=== PATIENT | female | born 1975 | race Caucasian/White ===

== ENCOUNTER 2017-06-06 20:55 | Observation (INO) | payer MEDICAID ==
[~2017-06-06] VITALS: Ht 180.3 cm; Wt 83.6 kg
[~2017-06-06 20:55] MED LIST: AUGMENTIN1 TA2 PO; BACTROBAN2% TP; CIPRO 500MG TA500 MG PO; DILAUDID2 MG PO; FLEXERIL10 M1 PO; FLEXERIL10 MG PO; IBU-8800 MG PO; KEFLEX 500MG.500 MG PO; LORTAB 5/500 501 TAB PO; LORTAB 500 MG-71 TAB PO; MEDROL 4MG. DOSE4 MG PO; METOPROLOL SUC100 M1 PO; NEURONTIN 300M300 MG PO; NEURONTIN100 MG PO; NORCO 325 MG-51 TAB PO; PERCOCET 5/3251 EACH PO; PREDNISONE 20MG20 MG PO; PREVACID30 MG PO; SEPTRA DS 800 M1 TAB PO; SEROQUEL 25MG T25 MG PO; TYLENOL W/CODEI1 TA2 PO; WELLBUTRIN 150150 MG PO; XANAX1 MG PO; ZOLOFT100 MG PO
[2017-06-06 20:56] VITALS: BP 127/86
[2017-06-06] MEDS ORDERED: ESCITALOPRAM20 MG PO (21:02)
[2017-06-06] MEDS ORDERED: LISINOPRIL20 MG PO (21:02)
[2017-06-06 21:17] LABS: LYMPH # 2.8 K/mm3 (0.7-4.5); LYMPH % 35.4 % (10-50.0)
[2017-06-06 21:18] LABS: HEMOGLOBIN 15.4 g/dL (12.2-16.2)
--- OUTSIDE RECORDS SUMMARY | 2017-06-06 21:22 | External Medical Summary Rpt | CCD ---
Author Author , PRIMITIVO LANGFORD Address Unknown Phone Care Team Providers Care Punch Molder Name Role Phone Aparna Palacios MD, Unavailable Unavailable Aparna ZAMAN MD, Unavailable Unavailable SENG ZAMAN MD Purpose Continuity of Care Document - 11-13-2012 through 2016 Problems Code Diagnosis DOS Provider Status 825.25 825.25 FX 09-02-2013 [place] METATARSAL- [facility] E849.0 E849.0 09-02-2013 [place] ACCIDENT IN [facility] E880.9 E880.9 FALL 09-02-2013 [place] ON [facility] STAIR/STEP [facility] NEC 216.6 216.6 03-10-2013 [place] BENIGN GILDA [facility] SKIN ARM [facility] 305.1 305.1 03-10-2013 [place] TOBACCO USE [facility] DISORDER [facility] 401.9 401.9 03-10-2013 [place] HYPERTENSIO [facility] 599.0 599.0 URIN 11-13-2012 [place] TRACT [facility] INFECTION Hospital NOS 788.0 788.0 RENAL 11-13-2012 [place] COLIC [facility] D25.9 Leiomyoma of uterus, unspecified F32.9 Major depressive disorder, single episode, unspecified F41.1 Generalized anxiety disorder I10 Essential (primary) hypertensio n M54.5 Low back pain N83.202 Unspecified ovarian cyst, left side N93.8 Other specified abnormal uterine and vaginal bleeding R11.2 Nausea with vomiting, unspecified T15.91XA Foreign body on external eye, part unspecified , right eye, initial encounter Z01.419 Encounter for gynecologic al examination (general) (routine) without abnormal findings Z87.09 Personal history of other diseases of the respiratory system Allergies, Adverse Reactions, Alerts Type Allergy to substance Adverse Reaction to Substance Substance Reaction Severity INGREDIENT: NO KNOWN Unknown Unknown - NO KNOWN DRUG ALLERGY Medications Na ND Rx Da Fi Fi Am Da Di Ph RX Ph St me C No te ll ll ou ys ag ar # ys at rm s nt no ma ic us Or Da si cy ia de te s n re d BU 55 02 0 No TO 39 -0 RP 00 8- Lo ANDINO 18 20 ng NO 30 14 er L 1 1 Ac MG ti /M ve L AL AZ 00 02 0 No OM 64 -0 ET 11 8- Lo ANDINO 49 20 ng ZI 53 14 er NE 5 Ac 25 ti ve MG /M L AM PU L AP 00 07 0 No AP 40 -2 -H 60 8- Lo YD 36 20 ng RO 66 13 er CO 2 DO Ac NE ti ve 32 5M G- 7. 5M G Sa 63 04 0 No li 80 -2 ne 70 1- Lo 10 20 ng Fl 07 13 er us 5 h Ac 10 ti ML ve Sy ri ng e KE 00 04 0 No TO 40 -2 RO 93 1- Lo LA 79 20 ng C 50 13 er 30 1 Ac MG ti /M ve L AL ON 00 04 0 No DA 64 -2 NS 16 1- Lo ET 08 20 ng RO 02 13 er N 5 HC Ac L ti 4 ve MG /2 ML AL Le 51 04 0 No vo 07 -2 fl 90 1- Lo ox 03 20 ng ac 52 13 er in 0 Ac 50 ti 0M ve G Ta bl et AC 51 04 0 No ET 07 -2 AM 90 1- Lo IN 16 20 ng OP 19 13 er HE 9H N Ac W/ ti CO ve DE IN E #3 TA K CE 00 04 0 No FT 40 -2 RI 97 1- Lo AX 33 20 ng ON 30 13 er E 4 1 Ac GM ti ve AL So 00 04 0 No d 07 -2 Ch 47 1- Lo lo 10 20 ng ri 11 13 er de 3 Ac 0. ti 9% ve 50 ML Ad v Vital Signs 09-02-2013 15:33 Name Value Interpretat Reference Comment ion Range BP 82 mm[Hg] Diastolic BP Systolic 142 mm[Hg] Heart 58 /min Rate/Pulse O2% 98 % Respiratory 20 /min Rate 09-02-2013 15:22 Name Value Interpretat Reference Comment ion Range BP 82 mm[Hg] Diastolic BP Systolic 145 mm[Hg] Heart 59 /min Rate/Pulse O2% 100 % Respiratory 20 /min Rate 03-10-2013 12:43 Name Value Interpretat Reference Comment ion Range BP 86 mm[Hg] Diastolic BP Systolic 130 mm[Hg] Heart 58 /min Rate/Pulse O2% 98 % Respiratory 20 /min Rate 02-19-2013 15:14 Name Value Interpretat Reference Comment ion Range Body 98.0 [degF] Temperature BP 81 mm[Hg] Diastolic BP Systolic 144 mm[Hg] Heart 71 /min Rate/Pulse O2% 99 % Respiratory 20 /min Rate 02-19-2013 15:13 Name Value Interpretat Reference Comment ion Range BP 81 mm[Hg] Diastolic BP Systolic 144 mm[Hg] Heart 58 /min Rate/Pulse O2% 100 % Respiratory 20 /min Rate 11-13-2012 22:00 Name Value Interpretat Reference Comment ion Range BP 60 mm[Hg] Diastolic BP Systolic 122 mm[Hg] Heart 61 /min Rate/Pulse O2% 99 % Respiratory 20 /min Rate 11-13-2012 20:45 Name Value Interpretat Reference Comment ion Range Body 98.0 [degF] Temperature BP 67 mm[Hg] Diastolic BP Systolic 126 mm[Hg] Heart 61 /min Rate/Pulse O2% 99 % Respiratory 20 /min Rate Results Labs Lab Lab Date Result Refere Interp Status Commen Order Detail nces retati t Range on CBC w auto diff (06-06-2017 21:04) Automat = 0.0 0-0.2 complet ed 017 K/MM3 ed blood 21:04 basophi l count (count/ vo Baso % = 0.4 % 0.1-2.0 complet 017 ed 21:04 Automat = 0.2 0.0-0.4 complet ed 017 K/mm3 ed blood 21:04 eosinop hil count Automat = 2.8 % 0.1-12. complet ed 017 0 ed blood 21:04 eosinop hils/10 0 leukocy t Blood = 4.5 1.8-7.8 complet granulo 017 K/mm3 ed cytes 21:04 automat ed count (numb Granulo = 57.7 37.0-80 complet cyte 017 % .0 ed percent 21:04 age Blood = 47.1 37.0-47 complet hematoc 017 % .0 ed rit 21:04 (volume fractio n) Blood = 15.4 12.2-16 complet hemoglo 017 g/dL .2 ed bin 21:04 measure ment (mass/v olum Absolut = 2.8 0.7-4.5 complet e 017 K/mm3 ed lymphoc 21:04 yte count Lymphoc = 35.4 10-50.0 complet yte 017 % ed count, 21:04 blood, automat ed Mean = 28.6 27-31.2 complet corpusc 017 pg ed ular 21:04 hemoglo bin (MCH) determ Automat = 32.8 31.8-35 complet ed 017 g/dl .4 ed erythro 21:04 cyte mean corpusc ular h Automat = 87.2 82.2-97 complet ed 017 fl .8 ed erythro 21:04 cyte mean corpusc ular v Absolut = 0.3 0.1-1.0 complet e 017 K/mm3 ed monocyt 21:04 e count Todd % = 3.8 % 1.7-9.3 complet 017 ed 21:04 Automat = 8.8 7.4-10. complet ed 017 fl 4 ed blood 21:04 platele t mean volume ivan Blood = 264 142-424 complet platele 017 K/mm3 ed t count 21:04 Red = 5.40 4.2-5.4 complet blood 017 M/mm3 ed cell 21:04 count Automat = 13.9 11.5-17 complet ed 017 % .5 ed erythro 21:04 cyte distrib ution width Blood = 7.8 4.8-10. complet leukocy 017 K/MM3 8 ed dayan 21:04 count (number /volume ) COMPREHENSIVE METABOLIC PANEL (11-13-2012 20:25) Glucose 115 74-106 complet 013 mg/dL ed Bld-mCn 20:25 c BUN 8 mg/dL 7-18 complet Bld-mCn 013 ed c 20:25 Creat 04-21-2 0.9 0.6-1.0 complet SerPl-m 013 mg/dL ed Cnc 20:25 ESTIMAT 2 122 50-200 complet ED 013 ML/MIN ed CREATIN 20:25 INE CLEARAN CE GFR 72 59- complet (ESTIMA 013 ML/MIN ed PHILL) 20:25 Sodium 11-13- 137 136-145 complet SerPl-s 013 mmoL/L ed Cnc 20:25 Potassi 2 3.4 3.5-5.1 complet um 013 mmoL/L ed SerPl-s 20:25 Cnc Chlorid 101 98-107 complet e 013 mmoL/L ed SerPl-s 20:25 Cnc CO2 26 21.0-32 complet SerPl-s 013 mmoL/L .0 ed Cnc 20:25 Calcium 8.9 8.5-10. complet 013 mg/dL 1 ed SerPl-m 20:25 Cnc Prot 2 6.9 6.4-8.2 complet SerPl-m 013 gm/dL ed Cnc 20:25 Albumin 3.7 3.4-5.0 complet 013 gm/dL ed SerPl-m 20:25 Cnc Globuli 2 3.2 1.3-3.2 complet n 013 gm/dL ed Ser-mCn 20:25 c Albumin 11-13-2 1.2 UNK 1.1-1.8 complet /Glob 013 ed SerPl-m 20:25 Rto Bilirub 2 0.4 0.2-1.0 complet 013 mg/dL ed SerPl-m 20:25 Cnc AST 23 U/L 15-37 complet SerPl-c 013 ed Cnc 20:25 ALT 11-13-2 50 U/L 30-65 complet SerPl-c 013 ed Cnc 20:25 ALP 11-13-2 97 U/L 50-136 complet SerPl-c 013 ed Cnc 20:25 CBC with AUTO DIFF (11-13-2012 20:25) WBC # 21-2 10.3 4.8-10. complet Bld 013 K/MM3 8 ed Auto 20:25 RBC # 11-13-2 4.93 4.2-5.4 complet Bld 013 M/mm3 ed Auto 20:25 Hgb -21-2 13.8 12.2-16 complet Bld-mCn 013 g/dL .2 ed c 20:25 Hct Fr 11-13-2 42.6 % 37.0-47 complet Bld 013 .0 ed 20:25 MCV RBC 11-13-2 86.5 fl 82.2-97 complet 013 .8 ed 20:25 MCH RBC 11-13-2 28.1 pg 27-31.2 complet Qn 013 ed Auto 20:25 MEAN 11-13-2 32.5 31.8-35 complet CORPUSC 013 g/dl .4 ed ULAR 20:25 HGB CONC RDW RBC 11-13-2 14.3 % 11.5-17 complet Auto 013 .5 ed 20:25 Platele --2 208 142-424 complet t Bld 013 K/mm3 ed Ql 20:25 Manual MEAN 2 8.5 fl 7.4-10. complet PLATELE 013 4 ed T 20:25 VOLUME Granulo -21-2 67.5 % 37.0-80 complet cytes 013 .0 ed Fr Bld 20:25 Auto LYMPH % 04-21-2 23.9 % 10-50.0 complet 013 ed 20:25 Monocyt 04-21-2 3.4 % 1.7-9.3 complet es Fr 013 ed Bld 20:25 Auto Eosinop 04-21-2 5.0 % 0.1-12. complet hil Fr 013 0 ed Bld 20:25 Auto Basophi 04-21-2 0.3 % 0.1-2.0 complet ls Fr 013 ed Bld 20:25 Auto Granulo 04-21-2 6.9 1.8-7.8 complet cytes # 013 K/mm3 ed Bld 20:25 Auto Lymphoc 04-21-2 2.5 0.7-4.5 complet ytes Fr 013 K/mm3 ed Bld 20:25 Auto Monocyt 04-21-2 0.4 0.1-1.0 complet es # 013 K/mm3 ed Bld 20:25 Auto Eosinop 04-21-2 0.5 0.0-0.4 complet hil # 013 K/mm3 ed Bld 20:25 Auto Basophi 04-21-2 0.0 0-0.2 complet ls # 013 K/MM3 ed Bld 20:25 Auto B-HCG Ur Ql (11-13-2012 20:18) B-HCG 21-2 NEGATIV NEG complet Ur Ql 013 E ed 20:18 URINALYSIS/COMPLETE (11-13-2012 20:18) URINE 21-2 YELLOW YELLOW complet COLOR 013 ed 20:18 URINE 21-2 CLOUDY CLEAR complet APPEARA 013 ed NCE 20:18 URINE 21-2 NEGATIV NEG complet GLUCOSE 013 E ed - 20:18 DIPSTIC K URINE 21-2 NEGATIV NEG complet BILIRUB 013 E ed IN - 20:18 DIPSTIC K URINE 21-2 NEGATIV NEG complet KETONE 013 E mg/dL ed 20:18 URINE -21-2 1.015 1.005-1 complet SPECIFI 013 UNK .030 ed C 20:18 GRAVITY URINE 21-2 1+ NEG complet BLOOD 013 ed 20:18 URINE 21-2 6.5 UNK 5.0-8.5 complet PH 013 ed 20:18 URINE 21-2 1+ NEG complet PROTEIN 013 mg/dL ed - 20:18 DIPSTIC K URINE 21-2 0.2 NEG complet UROBILI 013 E.U./dL ed NOGEN - 20:18 DIPSTIC K URINE -21-2 POSITIV NEG complet NITRATE 013 E ed - 20:18 DIPSTIC K URINE -21-2 3+ NEG complet LEUK 013 ed ESTERAS 20:18 E URINE 21-2 10-20 0 complet RBC 013 rbc/hpf ed 20:18 URINE 21-2 TNTC O complet WBC 013 wbc/hpf ed 20:18 URINE -21-2 2+ O complet BACTERI 013 ed A 20:18 Encounters Encounter Start End Date Code Location Performer Type Date Emergency VIRAL Palacios MD (ER) 4 14:39 4 15:33 [facility] Emergency VIRAL ZAMAN (ER) 3 11:45 3 12:43 [facility] Emergency VIRAL Nunes (ER) 3 14:44 3 15:19 [facility] Emergency VIRAL Palacios MD (ER) 3 20:17 3 22:00 [facility]
--- OUTSIDE RECORDS SUMMARY | 2017-06-06 21:22 | External Medical Summary Rpt | CCD ---
Author Author , PRIMITIVO LANGFORD Address Unknown Phone [email or web address] Care Team Providers Care Foreign Food Specialty Cook Name Role Phone Aparna Palacios MD, Unavailable Unavailable Aparna ZAMAN MD, Unavailable Unavailable SENG ZAMAN MD Purpose Continuity of Care Document - 11-13-2012 through 2016 Problems Code Diagnosis DOS Provider Status 825.25 825.25 FX 09-02-2013 [place] METATARSAL- [facility] E849.0 E849.0 09-02-2013 [place] ACCIDENT IN [facility] E880.9 E880.9 FALL 09-02-2013 [place] ON [facility] STAIR/STEP [facility] NEC 216.6 216.6 03-10-2013 [place] BENIGN GILDA [facility] SKIN ARM [facility] 305.1 305.1 03-10-2013 [place] TOBACCO USE [facility] DISORDER [facility] 401.9 401.9 03-10-2013 [place] HYPERTENSIO [facility] 599.0 599.0 URIN 11-13-2012 [place] TRACT [facility] NOS 788.0 788.0 RENAL 11-13-2012 [place] COLIC [facility] D25.9 Leiomyoma of uterus, unspecified F32.9 Major [...] Ac MG ti /M ve L AL SD 00 02 0 No OM 64 -0 [...] 017 K/mm3 ed monocyt 21:04 e count [place] % = 3.8 % 1.7-9.3 complet 017 [...] Palacios MD (ER) 4 14:39 4 15:33 [facility] Emergency VIRAL ZAMAN (ER) 3 11:45 3 12:43 [facility] Emergency VIRAL Nunes (ER) 3 14:44 3 15:19 [facility] Emergency VIRAL Palacios MD (ER) 3 20:17 3 22:00 [facility]
--- OUTSIDE RECORDS SUMMARY | 2017-06-06 21:23 | External Medical Summary Rpt | CCD ---
Author Author [employer]duent Organization [employer] Address Unknown Phone Unavailable Purpose Continuity of Care Document - through 2016
--- OUTSIDE RECORDS SUMMARY | 2017-06-06 21:23 | External Medical Summary Rpt | CCD ---
Author Author , PRIMITIVO Organization PRIMITIVO Address Unknown Phone [email or web address] Immunization Name Date Rout CVX Reac Dose Comm Prov Is Faci e tion ent ider Refu lity Give sed n Rabi 09-0 18 999 Hist H149 No H149 es, 6-20 oric IM 05 al Info rmat ion - Sour ce Unsp ecif ied Rabi 08-2 18 999 Hist H149 No H149 es, 9-20 oric IM 05 al Info rmat ion - Sour ce Unsp ecif ied Rabi 08-2 18 999 Hist H149 No H149 es, 5-20 oric IM 05 al Info rmat ion - Sour ce Unsp ecif ied Rabi 08-2 18 999 Hist H149 No H149 es, 2-20 oric IM 05 al Info rmat ion - Sour ce Unsp ecif ied
--- OUTSIDE RECORDS SUMMARY | 2017-06-06 21:23 | External Medical Summary Rpt ---
Author Author PRIMITIVO Rehman, PRIMITIVO Rehman Organization [employer] Address Unknown Phone Unavailable
--- OUTSIDE RECORDS SUMMARY | 2017-06-06 21:23 | External Medical Summary Rpt | CCD ---
Author Author , PRIMITIVO Organization PRIMITIVO Address Unknown Phone [email or web address] Immunization Name Date Rout CVX Reac Dose [...]
[2017-06-06 21:46] LABS: BUN 10 mg/dL (7-18); GFR (ESTIMATED) 70 ML/MIN (59-)
--- NOTE | 2017-06-06 21:53 | Emergency Room Report ---
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 N Clinical Suspician of Infection? N Mental Status: 1 - Regular (Normal Baseline) Sepsis Risk:Low Sepsis Risk Have you (or family members/close friends) recently traveled outside the [place]? N If Yes, where/when: Have you had exposure to infectious disease within the past month? N TB? Other? Specify: Source patient, RN notes reviewed, family, RN/MD Exam Limitations no limitations Comment Patient is a 41-year-old lady presenting to the emergency room with LEFT lower chest pain, radiating to the LEFT shoulder, LEFT jaw, onset approximately 1 hour prior to arrival, associated with diaphoresis, shortness of breath. Patient has a strong family history of heart disease, with both mother and father dying of massive heart attacks at age 48 and 57. She is also heavy smoker. She has had no previous cardiac workup, no previous chest pain. Cardiac Chest Pain Chest pain indicative of cardiac Yes Timing/Duration just prior to arrival (one hour prior to arrival) Severity moderate Modifying Factors Improves With: rest. Worsens With: movement. Associated Symptoms diaphoresis, shortness of breath, weakness ALLERGIES Coded Allergies: No Known Allergies (09/10/15) Home Medications Reported Medications Escitalopram Oxalate 20 MG PO DAILY #30 TAB Gabapentin (Neurontin) 100 MG PO BID Lisinopril 20 MG PO DAILY #30 History Medical History General CAD? No Angina: No NE: No Hypertension? Yes Hyperlipidemia? No CHF? No DVT? No PE? No COPD? No Asthma? No Anemia? No GERD? No Gastric ulcers? No GI Bleed? No Hernia? No Thyroid Problems? No Hypothyroidism? No CVA? No Seizures? No Diabetes? No Insulin Dependent: No Insulin Pump: No Home FSBS? No Renal Insuffiency? No End Stage Renal Disease? No UTI? No Stones? No BPH? No GB Disease: Yes Nephritic Syndrome? No Asplenia? No Hepatitis? No Sickle Cell Disease? No Arthritis? No Migraines? No Cataracts? No Glaucoma? No MRSA? No HIV? No TB? No Anxiety? No Depression? No Cancer? No More? 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 Social History Smoking Hx Smoker: Current Every Day Smoker Tobacco: Yes Type Cigarettes Packs/day < 1 Pack Alcohol Alcohol: No Review of Systems All Other Systems Reviewed and Negative Cardiovascular chest pain Physical Exam Vital Signs Vital Signs Date Time Temp Pulse Resp B/P Pulse O2 O2 Flow FiO2 Ox Delivery Rate 06/06 2249 97.5 63 20 150/71 06/06 2245 63 06/06 2245 100 ROOM AIR 06/06 2245 97.5 63 20 150/71 100 06/06 2245 97.5 63 20 150/71 100 ROOM AIR 06/06 2228 97.5 68 20 130/75 98 06/069 20 06/06 2154 68 20 130/75 98 06/06 2056 97.5 75 20 127/86 100 General Appearance normal appearance, WD/WN, no apparent distress Respiratory Status Yes: trachea midline, chest symmetrical, non tender chest. No: respiratory distress. Lung Sounds bilateral: normal breath sounds, lungs clear. Cardiovascular normal exam, regular rate/rhythm, no peripheral edema, no gallop, no JVD, no murmur, no rub, normal peripheral pulses Gastrointestinal normal bowel sounds, normal exam, non tender, soft, no organomegaly Extremities non-tender, normal range of motion, normal inspection Neurologic alert, histology manager II-XII nml as tested, normal exam, oriented x 3 Mental status normal mood/affect Skin intact, normal color, warm/dry Medical Decision Making LABS/Meds/Orders Pt receiving controlled substance in ED? No Comment 21:50-case d/w Dr. Kaur, advised of patient's presentation and findings, abnormal electrocardiogram, risk factors. Dr. Kaur agreeable with hospitalization as well as cardiology consult. Care transferred to Dr. Kaur and Dr. Gonzalez at this time. I will write temporary admission orders per hospital protocol, with loading unit operator seating to call PCP/epic specialist upon patient's arrival to the floor is noted to obtain full inpatient admission orders. Results/Orders Laboratory Tests 11/12/17 2104: Sodium 136, Potassium 3.3 L, Chloride 97 L, Carbon Dioxide 31, BUN 10, Creatinine 0.9, Estimated Creat Clear 111, Estimated GFR (MDRD) 70, Glucose 103, Calcium 9.8, Total Bilirubin 0.5, AST 11 L, ALT 24, Alkaline Phosphatase 79, Creatine Kinase 47, CK-MB (CK-2) Rel Index 1.1, CK and CKMB Interp < 0.5, Troponin I < 0.02, B-Natriuretic Peptide < 5, Total Protein 8.2, Albumin 4.5, Globulin 3.7 H, Albumin/Globulin Ratio 1.2, PT 10.7, INR 0.99, APTT 27.5, D- Dimer 143, WBC 7.8, RBC 5.40, Hgb 15.4, Hct 47.1 H, MCV 87.2, RDW 13.9, Plt Count 264, MPV 8.8, Gran % 57.7, Gran # 4.5, Lymphocytes % 35.4, Monocytes % 3.8 , Eosinophils % 2.8, Basophils % 0.4, Lymphocytes # 2.8, Monocytes # 0.3, Eosinophils # 0.2, Basophils # 0.0, PUBS MCHC 32.8, MCH 28.6 Current Medication Orders Sig/Kamila Start time Last Medication Dose Route Stop Time Status Admin Aspirin 325 MG DAILY 06/07 0900 AC 06/07 PO 0833 Acetaminophen 1,000 MG Q4HP PRN 06/06 2245 AC 06/07 PO 0004 Ondansetron HCl 4 MG Q6HP PRN 06/06 2245 AC IV Sodium Chloride 1,000 ML .Q8H 06/06 2245 AC 06/07 IV 0004 Influenza Virus 0.5 ML PRN PRN 06/06 2230 AC Vaccine Quadrival IM Nicotine 21 MG DAILYP PRN 06/06 2230 AC TD Iopamidol 75 ML ONCE ONE 06/06 2200 DC 06/06 IV 06/06 Ketorolac 30 MG ONCE ONE 06/06 2200 DC 06/06 Tromethamine IV 06/06 Ondansetron HCl 4 MG ONCE ONE 06/06 2200 CAN IV 06/06 2201 Sodium Chloride 10 ML PRN PRN 06/06 2200 DC 06/06 IV 06/06 Ketorolac 0 .STK-MED ONE 06/06 2156 DC Tromethamine .ROUTE Ondansetron HCl 4 MG ONCE ONE 06/06 2115 DC 06/06 IV 06/06 Aspirin 0 .STK-MED ONE 06/06 2112 DC .ROUTE Ondansetron HCl 0 .STK-MED ONE 06/06 2111 DC .ROUTE Aspirin 325 MG ONCE ONE 06/06 2100 DC 06/06 PO 06/06 Sodium Chloride 10 ML PRN PRN 06/06 2100 AC IV 06/07 2057 Orders Procedure Date/time Status DIET-NOTHING BY MOUTH 06/07 B Active ELECTROCARDIOGRAM REQUEST 06/07 0600 Active CARDIAC ENZYMES 06/07 0600 Complete CARDIAC ENZYMES 06/06 235 Complete ADMITTED PT IS ACTUALLY IN BED 06/06 2251 Active Decision to admit 06/06 2215 Active SERUM , QUAL 06/[address] CHEST W/PE PROTOCOL REQ 06/06 2109 Active ELECTROCARDIOGRAM REQUEST 06/06 2057 Active IV SALINE LOCK 06/06 2057 Active CONCRETE WORKER 06/06 2057 Active PARTIAL THROMBOPLASTIN TIME 06/06 2057 Complete PROTHROMBIN TIME 06/06 2057 Complete D-DIMER 06/06 2057 Complete COMPLETE METABOLIC PANEL 06/06 2057 Complete CBC WITH AUTO DIFF 06/06 2057 Complete CARDIAC ENZYMES 06/06 2057 Complete BRAIN NATRIURETIC PEPTIDE 06/06 2057 Complete ADMIT PATIENT 06/06 UNK Active 12 LEAD EKG-BESSON (INITIAL) 06/06 UNK Active PULSE OXIMETRY REQUEST 06/06 UNK Active VITAL SIGNS 06/06 UNK Active 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 EKG rate (57), rhythm (regular, bardy), no ectopy, normal QRS, normal TX XRAY/CT/US XRAY/CT/US XRAY chest XR interpretation by reviewed by me Xray Results no infiltrates, normal heart size, normal lung inflation wendy Departure Departure Time of Disposition 2200 Disposition Still a Patient Clinical Impression Primary Impression: Chest pain Qualifiers: Chest pain type: unspecified Qualified Code: R07.9 - Chest pain, unspecified Condition STABLE ED [place] [address]
--- NOTE | 2017-06-06 21:53 | Emergency Room Report ---
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 ALSO C/O VOMITING ABD WEAKNESS Onset of symptoms date/time:06/06/1707/11/2000 or onset unknown for: Treatment Prior to Arrival: INS[employer]OR [employer] INSTALLATIONS Provided by: Sepsis Risk Assessment: Temp: 97.5 B/P: 127/86 MAP: 99 Pulse: 75 Resp: 20 Recent fever? N Clinical Suspician of Infection? N Mental Status: 1 - Regular (Normal Baseline) Sepsis Risk:Low Sepsis Risk Have you (or family members/close friends) recently traveled outside the [place]? N If Yes, where/when: Have you had exposure to infectious disease within the past month? N TB? Other? Specify: Source patient, RN notes reviewed, family, RN/MD Exam Limitations no limitations Comment Patient is a 41-year-old lady presenting to the emergency room with LEFT lower chest pain, radiating to the LEFT shoulder, LEFT jaw, onset approximately 1 hour prior to arrival, associated with diaphoresis, shortness of breath. Patient has a strong family history of heart disease, with both mother and father dying of massive heart attacks at age 48 and 57. She is also heavy smoker. She has had no previous cardiac workup, no previous chest pain. Cardiac Chest Pain Chest pain indicative of cardiac Yes Timing/Duration just prior to arrival (one hour prior to arrival) Severity moderate Modifying Factors Improves With: rest. Worsens With: movement. Associated Symptoms diaphoresis, shortness of breath, weakness ALLERGIES Coded Allergies: No Known Allergies (09/10/15) Home Medications Reported Medications Escitalopram Oxalate 20 MG PO DAILY #30 TAB Gabapentin (Neurontin) 100 MG PO BID Lisinopril 20 MG PO DAILY #30 History Medical History General CAD? No Angina: No MA: No Hypertension? Yes Hyperlipidemia? No CHF? No DVT? No PE? No COPD? No Asthma? No Anemia? No GERD? No Gastric ulcers? No GI Bleed? No Hernia? No Thyroid Problems? No Hypothyroidism? No CVA? No Seizures? No Diabetes? No Insulin Dependent: No Insulin Pump: No Home FSBS? No Renal Insuffiency? No End Stage Renal Disease? No UTI? No Stones? No BPH? No GB Disease: Yes Nephritic Syndrome? No Asplenia? No Hepatitis? No Sickle Cell Disease? No Arthritis? No Migraines? No Cataracts? No Glaucoma? No MRSA? No HIV? No TB? No Anxiety? No Depression? No Cancer? No More? 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 Social History Smoking Hx Smoker: Current Every Day Smoker Tobacco: Yes Type Cigarettes Packs/day < 1 Pack Alcohol Alcohol: No Review of Systems All Other Systems Reviewed and Negative Cardiovascular chest pain Physical Exam Vital Signs Vital Signs Date Time Temp Pulse Resp B/P Pulse O2 O2 Flow FiO2 Ox Delivery Rate 06/06 2249 97.5 63 20 150/71 06/06 2245 63 06/06 2245 100 ROOM AIR 06/06 2245 97.5 63 20 150/71 100 06/06 2245 97.5 63 20 150/71 100 ROOM AIR 06/06 2228 97.5 68 20 130/75 98 06/069 20 06/06 2154 68 20 130/75 98 06/06 2056 97.5 75 20 127/86 100 General Appearance normal appearance, WD/WN, no apparent distress Respiratory Status Yes: trachea midline, chest symmetrical, non tender chest. No: respiratory distress. Lung Sounds bilateral: normal breath sounds, lungs clear. 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 No Comment 21:50-case d/w Dr. Kaur, advised of patient's presentation and findings, abnormal electrocardiogram, risk factors. Dr. Kaur agreeable with hospitalization as well as cardiology consult. Care transferred to Dr. Kaur and Dr. Gonzalez at this time. I will write temporary admission orders per hospital protocol, with community support professional to call PCP/paster hat lining upon patient's arrival to the floor is noted to obtain full inpatient admission orders. Results/Orders Laboratory Tests 11/12/17 2104: Sodium 136, Potassium 3.3 L, Chloride 97 L, Carbon Dioxide 31, BUN 10, Creatinine 0.9, Estimated Creat Clear 111, Estimated GFR (MDRD) 70, Glucose 103, Calcium 9.8, Total Bilirubin 0.5, AST 11 L, ALT 24, Alkaline Phosphatase 79, Creatine Kinase 47, CK-MB (CK-2) Rel Index 1.1, CK and CKMB Interp < 0.5, Troponin I < 0.02, B-Natriuretic Peptide < 5, Total Protein 8.2, Albumin 4.5, Globulin 3.7 H, Albumin/Globulin Ratio 1.2, PT 10.7, INR 0.99, APTT 27.5, D- Dimer 143, WBC 7.8, RBC 5.40, Hgb 15.4, Hct 47.1 H, MCV 87.2, RDW 13.9, Plt Count 264, MPV 8.8, Gran % 57.7, Gran # 4.5, Lymphocytes % 35.4, Monocytes % 3.8 , Eosinophils % 2.8, Basophils % 0.4, Lymphocytes # 2.8, Monocytes # 0.3, Eosinophils # 0.2, Basophils # 0.0, PUBS MCHC 32.8, MCH 28.6 Current Medication Orders Sig/Kamila Start time Last Medication Dose Route Stop Time Status Admin Aspirin 325 MG DAILY 06/07 0900 AC 06/07 PO 0833 Acetaminophen 1,000 MG Q4HP PRN 06/06 2245 AC 06/07 PO 0004 Ondansetron HCl 4 MG Q6HP PRN 06/06 2245 AC IV Sodium Chloride 1,000 ML .Q8H 06/06 2245 AC 06/07 IV 0004 Influenza Virus 0.5 ML PRN PRN 06/06 2230 AC Vaccine Quadrival IM Nicotine 21 MG DAILYP PRN 06/06 2230 AC TD Iopamidol 75 ML ONCE ONE 06/06 2200 DC 06/06 IV 06/06 Ketorolac 30 MG ONCE ONE 06/06 2200 DC 06/06 Tromethamine IV 06/06 Ondansetron HCl 4 MG ONCE ONE 06/06 2200 CAN IV 06/06 2201 Sodium Chloride 10 ML PRN PRN 06/06 2200 DC 06/06 IV 06/06 Ketorolac 0 .STK-MED ONE 06/06 2156 DC Tromethamine .ROUTE Ondansetron HCl 4 MG ONCE ONE 06/06 2115 DC 06/06 IV 06/06 Aspirin 0 .STK-MED ONE 06/06 2112 DC .ROUTE Ondansetron HCl 0 .STK-MED ONE 06/06 2111 DC .ROUTE Aspirin 325 MG ONCE ONE 06/06 2100 DC 06/06 PO 06/06 Sodium Chloride 10 ML PRN PRN 06/06 2100 AC IV 06/07 2057 Orders Procedure Date/time Status DIET-NOTHING BY MOUTH 06/07 B Active ELECTROCARDIOGRAM REQUEST 06/07 0600 Active CARDIAC ENZYMES 06/07 0600 Complete CARDIAC ENZYMES 06/06 235 Complete ADMITTED PT IS ACTUALLY IN BED 06/06 2251 Active Decision to admit 06/06 2215 Active SERUM , QUAL 06/[address] CHEST W/PE PROTOCOL REQ 06/06 2109 Active ELECTROCARDIOGRAM REQUEST 06/06 2057 Active IV SALINE LOCK 06/06 2057 Active DISABILITY SPECIALIST 06/06 2057 Active PARTIAL THROMBOPLASTIN TIME 06/06 2057 Complete PROTHROMBIN TIME 06/06 2057 Complete D-DIMER 06/06 2057 Complete COMPLETE METABOLIC PANEL 06/06 2057 Complete CBC WITH AUTO DIFF 06/06 2057 Complete CARDIAC ENZYMES 06/06 2057 Complete BRAIN NATRIURETIC PEPTIDE 06/06 2057 Complete ADMIT PATIENT 06/06 UNK Active 12 LEAD EKG-BESSON (INITIAL) 06/06 UNK Active PULSE OXIMETRY REQUEST 06/06 UNK Active VITAL SIGNS 06/06 UNK Active 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 EKG rate (57), rhythm (regular, bardy), no ectopy, normal QRS, normal GA XRAY/CT/US XRAY/CT/US XRAY chest XR interpretation by reviewed by me Xray Results no infiltrates, normal heart size, normal lung inflation wendy Departure Departure Time of Disposition 2200 Disposition Still a Patient Clinical Impression Primary Impression: Chest pain Qualifiers: Chest pain type: unspecified Qualified Code: R07.9 - Chest pain, unspecified Condition STABLE ED Critical Care Critical Care No at 0971
--- OUTSIDE RECORDS SUMMARY | 2017-06-06 22:19 | External Medical Summary Rpt | CCD ---
Author Author , PRIMITIVO Organization PRIMITIVO Address Unknown Phone [email or web address] Immunization Name Date Rout CVX Reac Dose [...]
--- OUTSIDE RECORDS SUMMARY | 2017-06-06 22:19 | External Medical Summary Rpt | CCD ---
Author Author , PRIMITIVO LANGFORD Address Unknown Phone Care Team Providers Care Crime Scene Investigator Name Role Phone Aparna Palacios MD, Unavailable Unavailable Aparna ZAMAN MD, Unavailable Unavailable SENG ZAMAN MD Purpose Continuity of Care Document - 11-13-2012 through 2016 Problems Code Diagnosis DOS Provider Status 825.25 825.25 FX 09-02-2013 [place] METATARSAL- [facility] E849.0 E849.0 09-02-2013 [place] ACCIDENT IN [facility] E880.9 E880.9 FALL 09-02-2013 [place] ON [facility] STAIR/STEP [facility] NEC 216.6 216.6 03-10-2013 [place] BENIGN GILDA [facility] SKIN ARM [facility] 305.1 305.1 03-10-2013 [place] TOBACCO USE [facility] DISORDER [facility] 401.9 401.9 03-10-2013 [place] HYPERTENSIO [facility] 599.0 599.0 URIN 11-13-2012 [place] TRACT [facility] INFECTION Hospital NOS 788.0 788.0 RENAL 11-13-2012 [place] COLIC [facility] D25.9 Leiomyoma of uterus, unspecified F32.9 Major [...] Ac MG ti /M ve L [place] 00 02 0 No OM 64 -0 [...] 017 K/mm3 ed monocyt 21:04 e count [place] % = 3.8 % 1.7-9.3 complet 017 [...] ed dayan 21:04 count (number /volume ) D-dimer (06-06-2017 21:04) Comment: IS PATIENT ON ANTICOAGULANTS? N Comment: PTT RESULTS MUST BE CALLED IF PT ON HEPARIN!!! Y D-dimer = 143 0-400 complet 017 ng/mL ed 21:04 Comment: The D-Dimer values are presented in units of mass(ng/mL) of Comment: D-Dimer units(DDU). Comment: Comment: This test has been FDA approved as an aid in the assessment Comment: and evaluation of suspected DIC, and thromboembolic events Comment: including PE and DVT. However, it does not have approval Comment: for cut-off values for the exclusion of these conditions. Whole blood INR measurement (06-06-2017 21:04) Comment: IS PATIENT ON ANTICOAGULANTS? N Comment: PTT RESULTS MUST BE CALLED IF PT ON HEPARIN!!! Y Whole = 0.99 0.9-1.1 complet blood 017 ed INR 21:04 measure ment Comment: INDICATION INR RANGE Comment: Comment: THERAPY FOR DVT, PE, ATRIAL FIB; 2.0 - 3.0 Comment: PROPHYLAXIS FOR VTE Comment: Comment: THERAPY FOR MECHANICAL HEART 2.5 - 3.5 Comment: VALVE; PREVENTION OF SYSTEMIC Comment: EMBOLISM SECONDARY TO AMI Prothro = 10.7 9.4-11. complet mbin 017 SECONDS 8 ed time 21:04 (PT) in platele t poor p Activated partial thromboplastin time (a (06-06-2017 21:04) Comment: IS PATIENT ON ANTICOAGULANTS? N Comment: PTT RESULTS MUST BE CALLED IF PT ON HEPARIN!!! Y Activat = 27.5 23.6-34 complet ed 017 SECONDS .0 ed partial 21:04 thrombo plastin time (a Brain natriuretic peptide (06-06-2017 21:04) Brain < 5 0-100 complet natriur 017 pg/mL ed etic 21:04 peptide Cardiac enzymes (06-06-2017 21:04) Serum 06-06-2 < 0.5 0.0-3.6 complet or 017 ng/mL ed plasma 21:04 creatin e kinase MB measu Serum = 47 26-192 complet or 017 U/L ed plasma 21:04 creatin e kinase measure m Serum < 0.02 0.00-0. complet or 017 ng/mL 06 ed plasma 21:04 troponi n i.cardi ac measu Serum = 1.1 0-4.0 complet or 017 U/L ed plasma 21:04 creatin e kinase MB (CK-M Comprehensive metabolic panel (06-06-2017 21:04) Serum 11-2 = 1.2 1.1-1.8 complet or 017 ed plasma 21:04 albumin /globul in mass ra Serum 2 = 4.5 3.4-5.0 complet or 017 gm/dL ed plasma 21:04 albumin measure ment (mas Serum 2 = 79 46-116 complet or 017 U/L ed plasma 21:04 alkalin e phospha tase ivan Serum 2 = 0.5 0.2-1.0 complet or 017 mg/dL ed plasma 21:04 total bilirub in measure m Serum = 10 7-18 complet or 017 mg/dL ed plasma 21:04 urea nitroge n measure men Serum = 9.8 8.5-10. complet or 017 mg/dL 1 ed plasma 21:04 calcium measure ment (mas Serum = 97 98-107 complet or 017 mmoL/L ed plasma 21:04 chlorid e measure ment (mo Carbon = 31 21.0-32 complet dioxide 017 mmoL/L .0 ed 21:04 measure ment Serum 2 = 0.9 0.55-1. complet or 017 mg/dL 02 ed plasma 21:04 creatin ine measure ment ( Estimat = 111 50-200 complet ion of 017 ML/MIN ed creatin 21:04 ine renal clearan ce Estimat = 70 59- complet ed 017 ML/MIN ed glomeru 21:04 lar filtrat ion rate (GF Comment: REFERENCE RANGE: >60 ML/MIN/1.73 SQUARE METERS Comment: If this patient is -Filipino, then multiply the Comment: result by 1.210. Serum 06-06-2 = 3.7 1.3-3.2 complet globuli 017 gm/dL ed n 21:04 measure ment (mass/v olume) Serum 2 = 103 74-106 complet or 017 mg/dL ed plasma 21:04 glucose measure ment (mas Serum = 3.3 3.5-5.1 complet potassi 017 mmoL/L ed um 21:04 measure ment Serum = 136 136-145 complet sodium 017 mmoL/L ed measure 21:04 ment Serum = 11 15-37 complet or 017 U/L ed plasma 21:04 asparta te aminotr ansfera ALT = 24 12-78 complet (SGPT) 017 U/L ed ser/sanju 21:04 s Protein = 8.2 6.4-8.2 complet total 017 gm/dL ed ser/sanju 21:04 s COMPREHENSIVE METABOLIC PANEL (11-13-2012 20:25) Glucose 115 74-106 complet 013 mg/dL ed Bld-mCn 20:25 c BUN 8 mg/dL 7-18 complet Bld-mCn 013 ed c 20:25 Creat 0.9 0.6-1.0 complet SerPl-m 013 mg/dL ed Cnc 20:25 ESTIMAT 122 50-200 complet ED 013 ML/MIN ed CREATIN 20:25 INE CLEARAN CE GFR 72 59- complet (ESTIMA 013 ML/MIN ed PHILL) 20:25 Sodium 137 136-145 complet SerPl-s 013 mmoL/L ed Cnc 20:25 Potassi 3.4 3.5-5.1 complet um 013 mmoL/L ed SerPl-s 20:25 Cnc Chlorid 101 98-107 complet e 013 mmoL/L ed SerPl-s 20:25 Cnc CO2 26 21.0-32 complet SerPl-s 013 mmoL/L .0 ed Cnc 20:25 Calcium 8.9 8.5-10. complet 013 mg/dL 1 ed SerPl-m 20:25 Cnc Prot 6.9 6.4-8.2 complet SerPl-m 013 gm/dL ed Cnc 20:25 Albumin 3.7 3.4-5.0 complet 013 gm/dL ed SerPl-m 20:25 Cnc Globuli 3.2 1.3-3.2 complet n 013 gm/dL ed Ser-mCn 20:25 c Albumin 1.2 UNK 1.1-1.8 complet /Glob 013 ed SerPl-m 20:25 Rto Bilirub 11-13-2 0.4 0.2-1.0 complet 013 mg/dL ed SerPl-m 20:25 Cnc AST 11-13-2 23 U/L 15-37 complet SerPl-c 013 ed Cnc 20:25 ALT --2 50 U/L 30-65 complet SerPl-c 013 ed Cnc 20:25 ALP --2 97 U/L 50-136 complet SerPl-c 013 ed Cnc 20:25 CBC with AUTO DIFF (11-13-2012 20:25) WBC # -21-2 10.3 4.8-10. complet Bld 013 K/MM3 8 ed Auto 20:25 RBC # 21-2 4.93 4.2-5.4 complet Bld 013 M/mm3 ed Auto 20:25 Hgb 11-13-2 13.8 12.2-16 complet Bld-mCn 013 g/dL .2 [...] complet Auto 013 .5 ed 20:25 Platele -21-2 208 142-424 complet t Bld 013 K/mm3 ed Ql 20:25 Manual MEAN 11-13-2 8.5 fl 7.4-10. complet PLATELE 013 4 ed T 20:25 VOLUME Granulo --2 67.5 % 37.0-80 complet cytes 013 .0 ed Fr Bld 20:25 Auto LYMPH % -21-2 23.9 % 10-50.0 complet 013 ed 20:25 Monocyt 04-21-2 3.4 % 1.7-9.3 complet es Fr 013 ed Bld 20:25 Auto Eosinop -21-2 5.0 % 0.1-12. complet hil Fr 013 [...] Auto B-HCG Ur Ql (11-13-2012 20:18) B-HCG -21-2 NEGATIV NEG complet Ur Ql 013 E ed 20:18 URINALYSIS/COMPLETE (11-13-2012 20:18) URINE -21-2 YELLOW YELLOW complet COLOR 013 ed 20:18 URINE -21-2 CLOUDY CLEAR complet APPEARA 013 ed NCE 20:18 URINE -21-2 NEGATIV NEG complet GLUCOSE 013 E ed - 20:18 DIPSTIC K URINE -21-2 NEGATIV NEG complet BILIRUB 013 E ed IN - 20:18 DIPSTIC K URINE -21-2 NEGATIV NEG complet KETONE 013 E mg/dL ed 20:18 URINE -21-2 1.015 1.005-1 complet SPECIFI 013 UNK .030 ed C 20:18 GRAVITY URINE -21-2 1+ NEG complet BLOOD 013 ed 20:18 URINE -21-2 6.5 UNK 5.0-8.5 complet PH 013 ed 20:18 URINE -21-2 1+ NEG complet PROTEIN 013 mg/dL ed - 20:18 DIPSTIC K URINE -21-2 0.2 NEG complet UROBILI 013 E.U./dL ed NOGEN - 20:18 DIPSTIC K URINE -21-2 POSITIV NEG complet NITRATE 013 E ed - 20:18 DIPSTIC K URINE 3+ NEG complet LEUK 013 ed ESTERAS 20:18 E URINE 10-20 0 complet RBC 013 rbc/hpf ed 20:18 URINE TNTC O complet WBC 013 wbc/hpf ed 20:18 URINE 2+ O complet BACTERI 013 ed A 20:18 Encounters Encounter Start End Date Code Location Performer Type Date Emergency VIRAL Palacios MD (ER) 4 14:39 4 15:33 [facility] Emergency VIRAL ZAMAN (ER) 3 11:45 3 12:43 [facility] Emergency VIRAL Nunes (ER) 3 14:44 3 15:19 [facility] Emergency VIRAL Palacios MD (ER) 3 20:17 3 22:00 [facility]
--- OUTSIDE RECORDS SUMMARY | 2017-06-06 22:19 | External Medical Summary Rpt | CCD ---
Author Author , PRIMITIVO Organization PRIMITIVO Address Unknown Phone [email or web address] Immunization Name Date Rout CVX Reac Dose [...]
--- OUTSIDE RECORDS SUMMARY | 2017-06-06 22:19 | External Medical Summary Rpt | CCD ---
Author Author , PRIMITIVO LANGFORD Address Unknown Phone [email or web address] Care Team Providers Care Website Optimization Strategist Name Role Phone Aparna Palacios MD, Unavailable Unavailable Aparna ZAMAN MD, Unavailable Unavailable SENG ZAMAN MD Purpose Continuity of Care Document - 11-13-2012 through 2016 Problems Code Diagnosis DOS Provider Status 825.25 825.25 FX 09-02-2013 [place] METATARSAL- [facility] E849.0 E849.0 09-02-2013 [place] ACCIDENT IN [facility] E880.9 E880.9 FALL 09-02-2013 [place] ON [facility] STAIR/STEP [facility] NEC 216.6 216.6 03-10-2013 [place] BENIGN GILDA [facility] SKIN ARM [facility] 305.1 305.1 03-10-2013 [place] TOBACCO USE [facility] DISORDER [facility] 401.9 401.9 03-10-2013 [place] HYPERTENSIO [facility] 599.0 599.0 URIN 11-13-2012 [place] TRACT [facility] INFECTION Hospital NOS 788.0 788.0 RENAL 11-13-2012 [place] COLIC [facility] D25.9 Leiomyoma of uterus, unspecified F32.9 Major [...] Ac MG ti /M ve L [place] 00 02 0 No OM 64 -0 [...] 017 K/mm3 ed monocyt 21:04 e count [place] % = 3.8 % 1.7-9.3 complet 017 [...] SQUARE METERS Comment: If this patient is -Belgian, then multiply the Comment: result by 1.210. [...] Palacios MD (ER) 4 14:39 4 15:33 [facility] Emergency VIRAL ZAMAN (ER) 3 11:45 3 12:43 [facility] Emergency VIRAL Nunes (ER) 3 14:44 3 15:19 [facility] Emergency VIRAL Palacios MD (ER) 3 20:17 3 22:00 [facility]
[2017-06-06 22:45] VITALS: BP 150/71
[2017-06-06 22:49] VITALS: BP 150/71
[2017-06-06 23:52] VITALS: BP 117/79
[2017-06-07] VITALS (13 sets, daily range): BP systolic 89–122; BP diastolic 44–78
--- NOTE | 2017-06-07 04:50 | RADIOLOGY REPORT PS360 ---
CHEST-AP VIEW ONLY HISTORY: chest pain ORDERING PHYSICIAN: Joana Kaur MD PATIENT AGE: 41 years COMPARISON: 05/31/2015 FINDINGS: The cardiomediastinal silhouette and pulmonary vascularity are within normal limits. The lungs are clear without infiltrates, suspicious nodules, or pleural effusions. No acute bony abnormalities. IMPRESSION: Negative chest, no acute finding
--- NOTE | 2017-06-07 05:13 | RADIOLOGY REPORT PS360 ---
CTA-CHEST HISTORY: Chest pain and dyspnea CHEST PAIN ORDERING PHYSICIAN: Joana Kaur MD PATIENT AGE: 41 years TECHNIQUE: Helical acquisition obtained following the bolus administration of 60 mL of Isovue 370 followed by a saline bolus. Axial, sagittal, and coronal reformatted images are generated and reviewed. COMPARISON: None FINDINGS: PULMONARY ARTERIES:No pulmonary embolus evident. AORTA:No acute finding. No thoracic aortic aneurysm or dissection evident LUNGS:Unremarkable. No mass or consolidation. PLEURAL SPACES:No significant effusion. No evidence of pneumothorax. HEART:Normal heart size. There are some mild coronary artery calcifications noted. No obvious pericardial effusion MEDIASTINAL AND HILAR STRUCTURES:No mediastinal or hilar mass evident. No dominant adenopathy. BONY STRUCTURES:No acute bony abnormalities apparent LYMPH NODES:No enlarged lymph nodes evident UPPER ABDOMEN:Prior cholecystectomy IMPRESSION: 1. No acute finding. 2. No evidence of pulmonary embolus or aortic aneurysm. 3. Coronary artery calcifications suggesting coronary artery disease
--- NOTE | 2017-06-07 07:30 | PHARMACY CLINIC NOTE ---
Patient Demographics Patient Demographics Admission date: 06/06/17 Date: 06/07/17 Time: 07 Allergies Coded Allergies: No Known Allergies (09/10/15) HEIGHT- FT: 5 IN: 11.00 K.632 VTE General Information Labs: Laboratory Tests 06/06 2104 Coagulation PT (9.4 - 11.8 SECONDS) 10.7 INR (0.9 - 1.1) 0.99 APTT (23.6 - 34.0 SECONDS) 27.5 Hematology Hgb (12.2 - 16.2 g/dL) 15.4 Hct (37.0 - 47.0 %) 47.1 H Plt Count (142 - 424 K/mm3) 264 Disclaimer The following section includes nursing documentation that has been pulled in for pharmacy review. Patient's VTE score: 1 Patient's VTE Risk: VERY LOW RISK Clinical trial participant? No VTE prophylaxis NQF 0371 VTE prophylaxis ordered? Yes Type of prophylaxis/treatment: PHILL at 0729
--- NOTE | 2017-06-07 08:47 | CONSULT NOTE ---
Standard Demographics Patient Demo Date of Consultation: 06/07/17 Referring Provider: Cruz Kaur MD Reason for Consultation: Chest pain, abnormal CTA and EKG PRIMARY DIAGNOSIS: CHEST PAIN Problem list Problem list: 1. Tobacco use 2. Strong family history of coronary artery disease with mother dying of an myocardial infarction in her late 40s and father dying of an myocardial infarction in his early 50s 3. Hypertension 4. Unknown lipid status 5. 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 History of reflux symptoms, treated with PPI. History of present illness: History of present illness: 41-year-old white female admitted with anterior chest discomfort radiating towards the back and shortness of breath. This progressed to include include LEFT arm discomfort. Patient relates similar exertional discomfort increasing in intensity and frequency over the last year when she walks up steps or carries laundry or groceries in. Symptoms resolve with rest. Data symptoms were more intense and lasted longer. Evaluation in the ER included a CTA of the chest to rule out aortic aneurysm of pulmonary embolism, both were ruled out. Patient was given aspirin in the ER with resolution of symptoms thereafter. Cardiac enzymes are returned normal overnight. Electrocardiogram is sinus bradycardia with T- wave inversion inferiorly. Patient is not on any rate lowering medication. She has actually been out of her lisinopril for about a week. Cardiology consulted for evaluation and recommendations. CTA of the chest did show mild coronary calcifications. Past Medical History: General: Hypertension Yes CVA No Seizures No TB No COPD No Asthma No Diabetes No Insulin Dependent No Insulin Pump No Angina No LA No Hyperlipidemia No Urinary Yes Cancer No Rheumatic H.D. 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 Additional hx OCD Past Surgical HX: Previous Surgery?Y Tonsils D & C CHOLECYSTECTOMY X 1 TUBAL Allergies Coded Allergies: No Known Allergies (09/10/15) Home medications: Reported Medications Escitalopram Oxalate 20 MG PO DAILY #30 TAB Gabapentin (Neurontin) 100 MG PO BID Lisinopril 20 MG PO DAILY #30 Current Medications: Current Medications Aspirin 325 MG DAILY PO Fentanyl Citrate 25 MCG PRN PRN IV (UNV) Fentanyl Citrate 50 MCG PRN PRN IV (UNV) Flumazenil 0.2 MG PRN PRN IV (UNV) Heparin Sodium (Beef Lung) 5,000 UNITS PRN PRN IV (UNV) Heparin Sodium/Sodium Chloride 3,000 UNITS PRN PRN IV (UNV) Lidocaine HCl 20 ML ONCE ONE IJ (UNV) Midazolam HCl 1 MG PRN PRN IV (UNV) Midazolam HCl 1 MG PRN PRN IV (UNV) Naloxone HCl 0.4 MG C8HBOIET PRN IV (UNV) Nitroglycerin 800 MCG PRN PRN IV (UNV) Verapamil HCl 5 MG PRN PRN IV (UNV) Sodium Chloride 1,000 ML .STK-MED ONE IV (DC) Acetaminophen 1,000 MG Q4HP PRN PO Ondansetron HCl 4 MG Q6HP PRN IV Sodium Chloride 1,000 ML .Q8H IV Influenza Virus Vaccine Quadrival 0.5 ML PRN PRN IM Nicotine 21 MG DAILYP PRN TD Iopamidol 75 ML ONCE ONE IV (DC) Ketorolac Tromethamine 30 MG ONCE ONE IV (DC) Ondansetron HCl 4 MG ONCE ONE IV (CAN) Sodium Chloride 10 ML PRN PRN IV (DC) Ketorolac Tromethamine 0 .STK-MED ONE .ROUTE (DC) Ondansetron HCl 4 MG ONCE ONE IV (DC) Aspirin 0 .STK-MED ONE .ROUTE (DC) Ondansetron HCl 0 .STK-MED ONE .ROUTE (DC) Aspirin 325 MG ONCE ONE PO (DC) Sodium Chloride 10 ML PRN PRN IV Immunization HX DT/Tetanus Unknown Flu Refused Pneumonia Never Had TB Test in last year No Family history Family HX Family Hx Insignificant No Diabetes Yes CAD Yes Hypertension Yes Hyperlipidemia Yes Cancer No TB No Social Hx: Smoking HX Tobacco Yes Type Cigarettes Packs/day 1 1/2 - 2 PACKS Are you/the child exposed to second-hand smoke: Yes Alcohol Alcohol: No Hx of Drug Use Drug Use? No Patien't marital status is Patient's support system is poor Review of systems: Constitutional No: no symptoms reported. Respiratory shortness of breath. Cardiovascular see HPI, chest pain Gastrointestinal/Abdominal No no symptoms reported Genitourinary No: no symptoms reported. Musculoskeletal No: no symptoms reported. Neurological No: no symptoms reported. Exam: Admission Vital Signs: 1ST Vital Signs Result Date Time Pulse Ox 100 06/06 2056 B/P 127/86 06/06 2056 Temp 97.5 06/06 2056 Pulse 75 06/06 2056 Resp 20 06/06 2056 O2 Delivery ROOM AIR 06/06 2245 Last Vital Signs: Vital Signs Result Date Time Pulse Ox 98 06/07 813 B/P 113/72 06/07 813 Temp 98.3 06/07 813 Pulse 56 06/07 813 Resp 20 06/07 813 O2 Delivery ROOM AIR 06/07 07 Exam General appearance: alert, awake, no acute distress Neck: no carotid bruit, no JVD Cardiovascular: regular rate & rhythm, no murmur Respiratory: clear to auscultation, good air movement ABD: soft, no tenderness Extremities: moves all, no peripheral edema Neuro: alert, intact, oriented Laboratory data: Laboratory Tests 06/07/17 0600: Creatine Kinase 37, CK-MB (CK-2) Rel Index 1.4, CK and CKMB Interp < 0.5, Troponin I < 0.02 06/06/175: Creatine Kinase 44, CK-MB (CK-2) Rel Index 1.1, CK and CKMB Interp < 0.5, Troponin I < 0.02 06/06/172103: Sodium 136, Potassium 3.3 L, Chloride 97 L, Carbon Dioxide 31, BUN 10, Creatinine 0.9, Estimated Creat Clear 111, Estimated GFR (MDRD) 70, Glucose 103, Calcium 9.8, Total Bilirubin 0.5, AST 11 L, ALT 24, Alkaline Phosphatase 79, Creatine Kinase 47, CK-MB (CK-2) Rel Index 1.1, CK and CKMB Interp < 0.5, Troponin I < 0.02, B-Natriuretic Peptide < 5, Total Protein 8.2, Albumin 4.5, Globulin 3.7 H, Albumin/Globulin Ratio 1.2, PT 10.7, INR 0.99, APTT 27.5, D- Dimer 143, WBC 7.8, RBC 5.40, Hgb 15.4, Hct 47.1 H, MCV 87.2, RDW 13.9, Plt Count 264, MPV 8.8, Gran % 57.7, Gran # 4.5, Lymphocytes % 35.4, Monocytes % 3.8 , Eosinophils % 2.8, Basophils % 0.4, Lymphocytes # 2.8, Monocytes # 0.3, Eosinophils # 0.2, Basophils # 0.0, PUBS MCHC 32.8, MCH 28.6 Plan Assessment: 1. Chest pain with concern for unstable angina pectoris in a patient with multiple risk factors including hypertension, strong family history, tobacco use and coronary artery calcification seen on CTA of the chest with dynamic electrocardiogram changes. Recommend proceeding with cardiac catheterization today. Patient agrees to proceed. 2. Hypertension, controlled currently on no medication. 3. Tobacco use 4. Mild hypokalemia Plan: Discussed with Dr. Gonzalez. See above. at 0846
--- NOTE | 2017-06-07 09:26 | HISTORY AND PHYSICAL REPORT ---
History and Physical ([facility]) Date of admission: 06/06/17 Chief complaint: Chest pain History: History of Present Illness: History of present illness: Ms Sterling is a 41-year-old white female with a history of HTN and depression who presented to the ER with LACP (aching), neck and left arm pain associated with SOB, nausea and vomiting and heart palpitations. Patient relates similar exertional discomfort increasing in intensity and frequency over the past year when she walked up steps or carried laundry or groceries. Symptoms did resolve with rest. Patient relates that she has been out of her Lisinopril for about a week and has felt that her BP was elevated. The feelings worsened over the weekend; She then began to have CP and thus presented to the ER. Evaluation in the ER included a CTA of the chest to rule out aortic aneurysm and pulmonary embolism; both were ruled out. Patient was given aspirin in the ER with resolution of symptoms. Cardiac enzymes have been normal overnight. Electrocardiogram reveals sinus bradycardia with T-wave inversion inferiorly. Patient does not relate being on any rate lowering medication. CTA of the chest did show mild coronary calcifications. She was admitted for further cardiology work-up. This AM patient does continue to have some discomfort in the left chest wall, left arm and posterior neck with movement. She has been seen by cardiology and will have a cardiac cath. Past Medical History: Medical History: CAD? No Angina: No RI: No Hypertension? Yes Hyperlipidemia? No CHF? No DVT? No PE? No COPD? No Asthma? No Anemia? No GERD? Yes Gastric ulcers? No GI Bleed? No Hernia? No Thyroid Problems? No Hypothyroidism? No CVA? No Seizures? No Diabetes? No Insulin Dependent: No Insulin Pump: No Home FSBS? No Renal Insuffiency? No UTI? No Stones? No BPH? No GB Disease: Yes Nephritic Syndrome? No Asplenia? No Hepatitis? No Sickle Cell Disease? No Arthritis? No Migraines? No Cataracts? No Glaucoma? No MRSA? No HIV? No TB? No Anxiety? Yes Depression? Yes Cancer? No More? Yes Additional hx: OCD Surgical history: Previous Surgery?Y Tonsils D & C CHOLECYSTECTOMY X 1 TUBAL Medications: Reported Medications Escitalopram Oxalate 20 MG PO DAILY #30 TAB Gabapentin (Neurontin) 100 MG PO BID Lisinopril 20 MG PO DAILY #30 Allergies: Coded Allergies: No Known Allergies (09/10/15) Family History: Family history: Postive for: CAD, DM, HTN, stroke. Social History: Smoking Hx Tobacco: Yes Smoker: Current Every Day Smoker Type: Cigarettes Packs/day: 1 1/2 - 2 Packs Are you exposed to second hand Yes Alcohol: Alcohol: No Hx of Drug Use: Drug Use? No Patient's occupation: Patient is legally blind and receives disability Review of Systems: Constitutional Positive for: recent weight loss. ENT No: sore throat. Cardiovascular Positive for: FRANCIS, chest pain, edema, palpitations. Respiratory Positive for: dyspnea on exertion, shortness of air. No: non-productive, productive cough (sputum). GI Positive for: GERD, diarrhea, nausea, vomitting. No: constipation, hematemeis, hematochezia, melena. (female) No: frequency, hematuria. Neurological Positive for: dizziness, headache, light headed. No: seizure, syncope. Eyes Positive for: vision loss. Musculoskeletal Positive for: joint pain, lumbar pain, neck pain. No: myalgias. Psychiatric Positive for: depression. Physical Exam: Vital signs: 1ST Vital Signs Result Date Time Pulse Ox 100 06/06 2056 B/P 127/86 06/06 2056 Temp 97.5 06/06 2056 Pulse 75 06/06 2056 Resp 20 06/06 2056 O2 Delivery ROOM AIR 06/06 2245 Exam: General appearance: alert, active, no acute distress, well-developed, well- nourished Eyes: anicteric ENT: mucous membranes moist, pharynx normal Neck: non-tender, no carotid bruit, full range of motion, supple, lymphadenopathy (absent), thyroid (normal) Cardiovascular: regular rate & rhythm, sinus akira on monitor Respiratory: clear to auscultation (bilat anterior and posterior) ABD: non-distended, soft, no tenderness, no guarding, bowel sounds present Extremities: full range of motion, no peripheral edema, no calf tenderness, pain in neck, chest and left arm with ROM of the left arm; left posterior neck TTP Musculoskeletal: left anterior chest TTP Neuro: alert, oriented, speech clear Lab data: Labs: Laboratory Tests 06/07/17 0600: Creatine Kinase 37, CK-MB (CK-2) Rel Index 1.4, CK and CKMB Interp < 0.5, Troponin I < 0.02 06/06/175: Creatine Kinase 44, CK-MB (CK-2) Rel Index 1.1, CK and CKMB Interp < 0.5, Troponin I < 0.02 06/06/174: Sodium 136, Potassium 3.3 L, Chloride 97 L, Carbon Dioxide 31, BUN 10, Creatinine 0.9, Estimated Creat Clear 111, Estimated GFR (MDRD) 70, Glucose 103, Calcium 9.8, Total Bilirubin 0.5, AST 11 L, ALT 24, Alkaline Phosphatase 79, Creatine Kinase 47, CK-MB (CK-2) Rel Index 1.1, CK and CKMB Interp < 0.5, Troponin I < 0.02, B-Natriuretic Peptide < 5, Total Protein 8.2, Albumin 4.5, Globulin 3.7 H, Albumin/Globulin Ratio 1.2, PT 10.7, INR 0.99, APTT 27.5, D- Dimer 143, WBC 7.8, RBC 5.40, Hgb 15.4, Hct 47.1 H, MCV 87.2, RDW 13.9, Plt Count 264, MPV 8.8, Gran % 57.7, Gran # 4.5, Lymphocytes % 35.4, Monocytes % 3.8 , Eosinophils % 2.8, Basophils % 0.4, Lymphocytes # 2.8, Monocytes # 0.3, Eosinophils # 0.2, Basophils # 0.0, PUBS MCHC 32.8, MCH 28.6 Radiology results: Results: 06/06/17 CXR IMPRESSION: Negative chest, no acute finding 06/06/17 CTA of the chest IMPRESSION: 1. No acute finding. 2. No evidence of pulmonary embolus or aortic aneurysm. 3. Coronary artery calcifications suggesting coronary artery disease Diagnosis(es): 1. Chest pain 2. Lumbar disc disease with radiculopathy 3. Tobacco use 4. Depression 5. HTN (hypertension) 6. Nausea and vomiting Plan: Is on KCL; for cardiac cath this AM (Jonna Katz APRN) Date of admission: 06/06/17 Diagnosis(es): 1. Chest pain 2. Lumbar disc disease with radiculopathy 3. Tobacco use 4. Depression 5. HTN (hypertension) 6. Nausea and vomiting Plan: Pt seen and examined. CHest pain has eased but not resolved. Seems worse with movement of arm and is markedly tender along left sternal border. Enzymes negative but EKG shows inferior Q waves. Await cardiology recommendations. (Vincent CUNNINGHAM,Joana Arroyo) at [phone] at [phone]
--- NOTE | 2017-06-07 10:37 | RADIOLOGY REPORT PS360 ---
CARDIAC CATHETERIZATION DATE OF CATHETERIZATION:06/07/2017 10:30 AM PROCEDURES: 1. Left heart catheterization 2. Left ventriculogram 3. Selective coronary angiogram INDICATION FOR TEST: 1. Unstable angina 2. Coronary calcification 3. Abnormal EKG with dynamic changes 4. Very strong family history of coronary artery disease Informed consent was obtained prior to the procedure. COMPLICATIONS: None ESTIMATED BLOOD LOSS: Less than 10 ml. TECHNIQUE: One percent lidocaine used to anesthetize the right anterior aspect of the wrist. The right radial artery was accessed via the Seldinger technique. A 6 Jordanian sheath was placed in the right radial artery. 2.5 mg of verapamil, 800 mcg of nitroglycerin and 5000 U Heparin were given through the arterial sheath. The trap catheter was also used to perform left heart catheterization and left ventriculography. At the end of the procedure the patient was transferred to the post-op holding area in stable condition for arterial sheath removal. ANGIOGRAPHIC RESULTS: 1. The left main artery normal 2. The left anterior descending artery is proximally normal and has mild mid vessel luminal irregularities 3. The circumflex artery is dominant and has mild luminal irregularities 4. The right coronary artery nondominant normal 5. The CHAVEZ ventriculogram reveals 65% 6. The left ventricular end-diastolic pressure 10 mmHg IMPRESSION: 1. Mild nonflow limiting coronary artery disease 2. Normal ejection fraction 3. Normal left ventricular end-diastolic pressure PLAN: 1. Medical management 2. Risk factor modification 3. Evaluation of noncardiac chest pain
[2017-06-07] MEDS ORDERED: ATORVASTATIN CA20 MG PO (14:05)
--- NOTE | 2017-06-08 21:13 | DISCHARGE SUMMARY STANDARD ---
Discharge Summary ([facility]) Date of admission: 06/06/17 Date of discharge: 06/07/17 Problem List: 1. Chest pain 2. Lumbar disc disease with radiculopathy 3. Tobacco use 4. Depression 5. HTN (hypertension) 6. Nausea and vomiting History of present illness: Ms Sterling is a 41-year-old white female with a history of HTN and depression who presented to the ER with LACP (aching), neck and left arm pain associated with SOB, nausea and vomiting and heart palpitations. Patient related similar exertional discomfort increasing in intensity and frequency over the past year when she walked up steps or carried laundry or groceries. Symptoms did resolve with rest. Patient related that she had been out of her Lisinopril for about a week and had felt that her BP was elevated. The feelings worsened over the weekend; She then began to have CP and thus presented to the ER. Evaluation in the ER included a CTA of the chest to rule out aortic aneurysm and pulmonary embolism; both were ruled out. Patient was given aspirin in the ER with resolution of symptoms. Cardiac enzymes were normal overnight. Electrocardiogram revealed sinus bradycardia with T-wave inversion inferiorly. Patient did relate being on any rate lowering medication. CTA of the chest did show mild coronary calcifications. She was admitted for further cardiology work -up. The am after admission she continued to have some discomfort in the left chest wall, left arm and posterior neck with movement. She was seen by cardiology and a cardiac cath was planned. Exam on admission: General appearance: alert, active, no acute distress, well-developed, well- nourished Eyes: anicteric ENT: mucous membranes moist, pharynx normal Neck: non-tender, no carotid bruit, full range of motion, supple, lymphadenopathy (absent), thyroid (normal) Cardiovascular: regular rate & rhythm, sinus akira on monitor Respiratory: clear to auscultation (bilat anterior and posterior) ABD: non-distended, soft, no tenderness, no guarding, bowel sounds present Extremities: full range of motion, no peripheral edema, no calf tenderness, pain in neck, chest and left arm with ROM of the left arm; left posterior neck TTP Musculoskeletal: left anterior chest TTP Neuro: alert, oriented, speech clear Hospital Course: The patient's cath showed mild nonflow limiting CAD with a normal EF. Medical management was recommended. The patient was stable to be discharged home. Discharge medications: Continue taking these medications: Gabapentin (Neurontin) 100 MG CAPSULE 100 MILLIGRAM ORAL TWICE A DAY Lisinopril (Lisinopril) 20 MG TABLET 20 MILLIGRAM ORAL DAILY Qty = 30 Escitalopram Oxalate (Escitalopram Oxalate) 20 MG TABLET 20 MILLIGRAM ORAL DAILY Qty = 30 Start taking the following new medications: ATORVASTATIN CALCIUM (ATORVASTATIN 20MG) 20 MG TABLET 20 MILLIGRAM ORAL AT BEDTIME NIGHTLY Days = 30 Refills = 5 Disposition: F/U with: PCP Follow up: 7 DAYS Comments, Specifics r/t O2, Equipment, Antibiotics, etc: To Fu with her MD at [facility] within 7 days Activity: Cont Current activity Diet: Continue same diet Discharge to: HOME Agency needed? N at [id number]
== END 2017-06-07 16:05 | disposition home or self-care (01) ==
LOC: ER 20:55 → 2ND 22:16 → ER 22:16 → 2ND 22:46
PROVIDERS: Emergency Medicine; Internal Medicine
PROC: B2111ZZ Fluoroscopy of Multiple Coronary Arteries using Low Osmolar Contrast (ICD-10-PCS; 2017-06-07)
PROC: B2151ZZ Fluoroscopy of Left Heart using Low Osmolar Contrast (ICD-10-PCS; 2017-06-07)
PROC: 4A023N7 Measurement of Cardiac Sampling and Pressure, Left Heart, Percutaneous Approach (ICD-10-PCS; principal; 2017-06-07 11:00)
DX: R07.9 Chest pain, unspecified (principal); I25.110 Atherosclerotic heart disease of native coronary artery with unstable angina pectoris; R94.31 Abnormal electrocardiogram [ECG] [EKG]; I10 Essential (primary) hypertension; Z72.0 Tobacco use; E87.6 Hypokalemia; M51.16 Intervertebral disc disorders with radiculopathy, lumbar region
CPT/HCPCS: C1725; C1769; G0378; J1644; J2405; Q9967